=== PATIENT | female | born 1940 | race Caucasian/White ===

== ENCOUNTER → 2017-02-18 | Outpatient (CLI) | payer MEDICARE, BC ==
[~2017-02-18] MED LIST: ASPI81TA3 PO; pain medication
--- NOTE | 2017-02-18 10:08 | RADRPT ---
PROCEDURE: XR Hip, Bilateral. CLINICAL INDICATION: Pain. TECHNIQUE: Right and left hip x-rays, 5 views including single frontal view the pelvis. COMPARISON: Right hip x-rays 05/07/2015. Pelvic x-ray 05/07/2015. FINDINGS: Right hip: Bone density appears decreased. Right hip arthroplasty hardware is in place and unchang ed in configuration. There is no lucency surrounding the hardware to suggest hardware failure/loose [place]. The hip joint is intact. Left hip: Bone density appears decreased. Severe joint space narrowing is present and has progress ed since prior examination. Large subchondral cysts and osteophytosis are present. Degenerative ch anges of the lower lumbar spine are observed. IMPRESSION: Right hip arthroplasty without evidence of hardware complication. Severe osteoarthritis of the left hip, progressed from prior examination. RPTAT: HLST .Maribel Brewster MD, MD Date Time Electronically viewed and signed by .Maribel Brewster MD, on 02/18/2017 10:07 .T/
== END | disposition home or self-care (01) ==
LOC: HKI 09:07
PROVIDERS: ATTEND Orthopaedic Surgery
DX: M25.552 Pain in left hip (principal); M16.12 Unilateral primary osteoarthritis, left hip; Z96.641 Presence of right artificial hip joint
CPT/HCPCS: 73523; G0463

== ENCOUNTER → 2017-04-22 | Outpatient (CLI) | payer MEDICARE, BC ==
[~2017-04-22] MED LIST changes: +ASPI325T32 PO; +HYDR-3498 PO; +PANT40TA4 PO; +TRAM50TA2 PO
== END | disposition home or self-care (01) ==
LOC: HKI 09:42
PROVIDERS: ATTEND Orthopaedic Surgery
DX: Z01.818 Encounter for other preprocedural examination (principal); M16.12 Unilateral primary osteoarthritis, left hip; Z96.641 Presence of right artificial hip joint
CPT/HCPCS: 87081; G0463

== ENCOUNTER 2017-05-03 05:41 | Inpatient (IN) | payer MEDICARE, BC ==
[~2017-05-03] VITALS: Ht 154.9 cm; Wt 56.2 kg
[2017-05-03] VITALS (30 sets, daily range): BP systolic 101–144; BP diastolic 54–71; PULSE 68–84; RESP 13–32; Ht 154.9 cm; Wt 56.2 kg
[~2017-05-03 05:41] MED LIST changes: -ASPI325T32 PO; -HYDR-3498 PO; -PANT40TA4 PO; -TRAM50TA2 PO
[2017-05-03] MEDS ORDERED: BACITRACIN 50000 UNITS INJ ONE (06:33)
[2017-05-03] MEDS ORDERED: SODIUM CL BACTERIOSTATIC 30 ML INJ ONE (06:55)
[2017-05-03] MEDS ORDERED: VANCOMYCIN 1 GM INJ ONE (06:55)
[2017-05-03] MEDS ORDERED: POLYMYXIN B 500000 UNIT INJ ONE (06:55)
[2017-05-03] MEDS ORDERED: PREGABALIN 300 MG PO X1 PO SCH (07:00)
[2017-05-03] MEDS ORDERED: CEFAZOLIN 2GM/50 ML (PMX) 50 ML X1 BEFORE INCISION IVPB SCH (07:00)
[2017-05-03] MEDS ORDERED: oxyCODONE (CR) 10 MG TAB [oxyCONTIN] X1 DOSE PO SCH (07:00)
[2017-05-03] MEDS ORDERED: ONDANSETRON 4 MG IV X 1 DOSE IV SCH (07:00)
[2017-05-03] MEDS ORDERED: TRANEXAMIC ACID 580 MG in SOD CHLORIDE 0.9% 100 ML IVPB SCH (07:00)
[2017-05-03] MEDS ORDERED: traMADOL 50 MG TAB X 1 DOSE PO SCH (07:00)
[2017-05-03] MEDS ORDERED: SOD CHLORIDE 0.9% IV SCH (07:00)
[2017-05-03] MEDS ORDERED: PAIN COCKTAIL-CEFUROXIME IRR SCH ×7 (07:00)
[2017-05-03] MEDS ORDERED: BUPIVACAINE LIPOSOME/PF 266 MG/20 ML VIAL INFIL SCH (07:00)
[2017-05-03] MEDS ORDERED: EPHEDrine SULFATE 50 MG/5 ML SYG ONE (07:00)
[2017-05-03] MEDS ORDERED: CELECOXIB 400 MG PO X1 DOSE PO SCH (07:00)
[2017-05-03] MEDS ORDERED: TRANEXAMIC ACID IV SCH (07:00)
[2017-05-03] MEDS ORDERED: DESFLURANE 15 MIN ONE (07:00)
[2017-05-03] MEDS ORDERED: LACTATED RINGER'S 1,000 ML IV SCH (07:00)
[2017-05-03] MEDS ORDERED: GLYCOPYRROLATE 0.4 MG INJ ONE (07:13)
[2017-05-03] MEDS ORDERED: ROCURONIUM 50 MG INJ ONE (07:13)
[2017-05-03] MEDS ORDERED: FENTAnyl 50 MCG/ML VIAL ONE (07:13)
[2017-05-03] MEDS ORDERED: CEFAZOLIN 1 GM INJ ONE (07:13)
[2017-05-03] MEDS ORDERED: DEXAMETHASONE 4 MG/ML 1 ML INJ ONE (07:13)
[2017-05-03] MEDS ORDERED: MIDAZOLAM 1 MG/ML 2 ML INJ ONE (07:13)
[2017-05-03] MEDS ORDERED: PROPOFOL 20 ML ONE (07:13)
[2017-05-03] MEDS ORDERED: NEOSTIGMINE 3 MG/3 ML SYRINGE ONE (07:13)
[2017-05-03] MEDS ORDERED: ONDANSETRON 4 MG INJ ONE (07:13)
--- NOTE | 2017-05-03 07:20 | HPN ---
Date/Time of Note Date/Time of Note DATE: 05/03/17 TIME: 07:20 Interval H&P Admission Note Pt. seen H&P reviewed: No system changes No changes from H&P on 04/21/17 by LIZETTE Hernández MD May 03, 2017 07:20
[2017-05-03] MEDS ORDERED: HEPARIN 1000 UNITS/ML 10 ML INJ ONE (07:21)
[2017-05-03] MEDS ORDERED: MINERAL OIL LIGHT 10 ML VIAL ONE (07:50)
[2017-05-03] MEDS ORDERED: MEPERIDINE 25 MG INJ IV PRN (08:30)
[2017-05-03] MEDS ORDERED: MIDAZOLAM 1 MG/ML 2 ML INJ IV PRN (08:30)
[2017-05-03] MEDS ORDERED: OXYCODONE/ACETAMINOPHEN (5/325) TAB PO PRN ×2 (08:30)
[2017-05-03] MEDS ORDERED: ALBUTEROL 0.083% (NEB) 2.5 MG/3 ML AMP HHN PRN (08:30)
[2017-05-03] MEDS ORDERED: DIPHENHYDRAMINE 50 MG INJ IV PRN (08:30)
[2017-05-03] MEDS ORDERED: HYDROmorphONE (0.2 MG/ML) 10ML SYG IV PRN ×3 (08:30)
[2017-05-03] MEDS ORDERED: LABETALOL HCL 20MG INJ IV PRN (08:30)
[2017-05-03] MEDS ORDERED: TRIMETHOBENZAMIDE 100 MG/ML VIAL IM PRN (08:30)
[2017-05-03] MEDS ORDERED: FENTAnyl 50 MCG/ML VIAL IV PRN ×3 (08:30)
[2017-05-03] MEDS ORDERED: EPHEDrine SULFATE 50 MG/5 ML SYG IV PRN (08:30)
[2017-05-03] MEDS ORDERED: hydrALAzine 20 MG INJ IV PRN (08:30)
[2017-05-03] MEDS ORDERED: IPRATROPIUM (NEB) 0.5 MG/2.5 ML AMP HHN PRN (08:30)
[2017-05-03] MEDS ORDERED: ONDANSETRON 4 MG INJ IV PRN ×2 (08:30→10:00)
[2017-05-03] MEDS ORDERED: ETOMIDATE 20 MG INJ ONE (09:01)
[2017-05-03] MEDS ORDERED: PROPOFOL 100 ML ONE (09:01)
[2017-05-03] MEDS ORDERED: SUGAMMADEX SODIUM 200 MG/2 ML VIAL IV ONE (09:10)
--- NOTE | 2017-05-03 09:52 | OPR ---
Date/Time of Note Date/Time of Note DATE: 05/03/17 TIME: 09:48 Operative Report Complications DATE: 05/03/2017 PREOPERATIVE DIAGNOSIS: Left hip osteoarthritis POSTOPERATIVE DIAGNOSIS: Left hip osteoarthritis OPERATION PERFORMED: Left anterior total hip arthroplasty SURGEON: Lizette Pena MD PLASTIC TUBING INSULATION SUPERVISOR: Godfrey Salazar PA-C COMPONENTS USED: DePuy 52 mm Gription Happy cup, 52/36 neutral Altrx polyethylene liner, 4 standard Actis stem, 36+8.5 ceramic head ANESTHESIA: Spinal plus general endotracheal intubation. ANESTHESIOLOGIST: Lopez Barnard M.D. ESTIMATED BLOOD LOSS: 300 cc INTRAVENOUS FLUIDS: Crystalloid 2 L. SPECIMENS: Femoral head. DRAINS: Hemovac 1 COMPLICATIONS: None. DISPOSITION: The patient tolerated the procedure well and was taken to the recovery room in stable condition. INDICATIONS: The patient is a 76-year-old woman who has had progressively worsening pain in the left hip with radiographic evidence of severe osteoarthritis. She has failed nonsurgical means of treatment to address her pain including activity modifications pain medications and ambulatory assist devices. I felt the patient would benefit from a total hip arthroplasty through an anterior approach. The risks, benefits, and alternatives of the procedure were explained in detail to the patient. I explained the risks of the surgery to include, but not be limited to: bleeding and possible need for blood transfusion; infection; pain; stiffness; neurovascular injury with possible numbness, weakness, and/or paralysis anywhere from the hip down to the toes; fracture; instability; dislocation; leg length inequality; wear and/or loosening of the prosthesis and possible need for future revision; blood clots; pulmonary embolism; and anesthetic complications such as heart attack, stroke, GI bleed, pneumonia, and/ or . Ample time was allowed for the patient to ask questions, all of which were addressed and answered. The patient understood the risks involved and wished to proceed. Informed consent was signed prior to the procedure. PROCEDURE: The patient's left hip was initialed with a marking pen in the preoperative area to identify the correct operative site. The patient was brought to the operating room and transferred from the [facility] to the [facility] where a spinal anesthetic was administered. The patient was then anesthetized and intubated. A Mac catheter was placed. Both feet were placed into well padded boots which were then placed into the leg holders of the traction booms. A timeout was performed to confirm that the left side was the correct operative site. The patient was given 2 g of intravenous Ancef within one hour prior to the procedure. The operative hip was prepped and draped in the usual sterile fashion. A 10 cm oblique incision was made over the anterior aspect of the hip and carried down through subcutaneous tissue and fat with sharp dissection. The tensor fascia irena was incised along the length of the wound. The tensor fascia muscle was retracted laterally and the sartorius medially. The anterior circumflex vessels were identified and tied off with 2-0 silk suture and coagulated with the Tissue Link vice president process. The rectus femoris was elevated off the anterior capsule and an anterior capsulectomy performed. A femoral neck osteotomy was made and the head removed from the acetabulum. The acetabulum was denuded of cartilage circumferentially, as was the femoral head. Retractors were placed around the acetabulum. The remnants of the labrum and ligamentum teres were excised. I reamed the acetabulum to the medial wall and then went into an anatomic position and increased the reamer size in 2 mm increments until I got a good bite and was down to bleeding subchondral bone. The Happy cup was opened and impacted into the acetabulum and sat flush circumferentially, getting a good bite. C-arm imaging showed it had about 40 to 45 degrees of abduction and 20 degrees of anteversion. The real liner was opened and impacted into the acetabulum and sat flush circumferentially. Attention was turned towards the femur. The operative leg was carefully lowered to the floor with the leg adducted. The foot was then externally rotated to approximately 110 degrees. A posteromedial release was performed to optimize exposure. The femoral hook was placed underneath the proximal femur and the hydraulic lift was then used to elevate the femur up out of the wound. The cookie cutter osteotome was used to remove the remaining overhanging greater trochanter. The femur was then broached, going up in one size increments until it sat flush with the neck cut and a stable fit was achieved. The trial neck and head were assembled and reduced into the acetabulum. Fluoroscopic imaging showed the components to be in good position and the leg lengths and offsets to be equal. At this point, the trial was dislocated and the trial broach removed. The canal was irrigated and dried. The real stem was opened and impacted into the femur. The trunnion was irrigated and dried, and the real femoral head was impacted onto the trunnion, and reduced into the acetabulum. The soft tissues were infiltrated with a mixture of 150 mg of 0.5% Bupivacaine, 8 mg of Duramorph, 300 mcg of epinephrine, 30 mg of Toradol, 100 mcg of clonidine, 750 mg of cefuroxime and 86 mL of normal saline, followed by an injection of 266 mg of liposomal Bupivacaine. At this point the hip was irrigated with a mixture of betadine/saline and then antibiotic saline with pulsatile lavage. A Hemovac drain was placed in the deep portion of the wound and brought out the anterolateral thigh. There was good hemostasis. The tensor fascia irena was repaired with a running #1 Vicryl. The deep fat layer was irrigated and closed with 2-0 Stratafix and the subcutaneous layer closed with 3 -0 Vicryl and the skin was closed with issa and then sealed with Dermabond. The drain was secured with 3-0 nylon. The sponge and needle counts were correct at the end of the case. The wound was covered with an occlusive dressing. The patient was awakened, extubated, and taken to the recovery room in stable condition. LIZETTE PENA MD May 03, 2017 09:52
--- NOTE | 2017-05-03 09:57 | PN ---
Date/Time of Note Date/Time of Note DATE: 05/03/17 TIME: 09:55 Assessment/Plan Lines/Catheters IV Catheter Type (from Nrsg): Peripheral IV Assessment/Plan Assessment/Plan Stable in PACU, s/p left anterior RHIANNON -continue Ancef -pain meds as needed -ASA/SCDs for DVT prophylaxis -OOB with PT -monitor drain -check AM labs -d/c morrell in AM XR of the left hip is pending at this time Subjective 24 Hr Interval Summary Stable in PACU. Denies pain. Moving all extremities. Exam/Review of Systems Vital Signs Vitals Vital Signs Date Time Temp Pulse Resp B/P Pulse Ox O2 Delivery O2 Flow Rate FiO2 05/03/17 09:47 97.7 05/03/17 06:54 68 16 109/61 98 Room Air Exam Free Text/Dictation Hemovac: minimal Dressing dry Incision clean, dry, and intact without redness or drainage 5/5 Quadriceps, Tibialis Anterior, EHL, Gastroc, Soleus, Peroneals Normal sensation Palpable DT/PT, CR <2 sec No distal edema AME MARTIN PA-C May 03, 2017 09:57
[2017-05-03] MEDS ORDERED: HYDROCODONE/APAP (5/325) TAB PO PRN (10:00)
[2017-05-03] MEDS ORDERED: MAGNESIUM HYDROXIDE 30ML CUP PO PRN (10:00)
[2017-05-03] MEDS ORDERED: NACL 0.9% 3 ML SYG IV SCH (10:00)
[2017-05-03] MEDS ORDERED: BISACODYL 10 MG SUPP PR PRN (10:00)
[2017-05-03] MEDS ORDERED: DIPHENHYDRAMINE 25 MG CAP PO PRN (10:00)
[2017-05-03] MEDS ORDERED: ASPIRIN (EC) 325 MG TAB PO ONE (10:00)
[2017-05-03] MEDS ORDERED: HYDROmorphONE 1 MG/ML SYG IV PRN (10:00)
[2017-05-03] MEDS ORDERED: NA PHOSPHATE/BIPHOS 133 ML ENEMA PR PRN (10:00)
[2017-05-03 10:43] LABS: HEMATOCRIT 36.4 % (37.0-47.0)
--- NOTE | 2017-05-03 11:01 | RADRPT ---
PROCEDURE: Pelvis x-ray CLINICAL INDICATION: Post op in PACU TECHNIQUE: Single AP view of the pelvis performed. COMPARISON: None FINDINGS: There are bilateral hip arthroplasties. The femoral and acetabular components are anatomically alig pillo. There is subcutaneous emphysema with a drainage tube associated with the left hip prosthesis w ith skin issa over the lateral surface of the left hip. IMPRESSION: 1. See postsurgical changes with subcutaneous emphysema and a drainage tube noted following placeme nt of a total left hip arthroplasty since the prior study of 02/18/2017. 2. Stable appearance of the total right hip arthroplasty. RPTAT:AAJJ Physician Maddie Date Time Electronically viewed and signed by Physician Maddie on 05/03/2017 11:00 SAMIR/
[2017-05-03 11:11] LABS: CALCIUM 8.9 mg/dl (8.4-10.2); CREATININE 0.48 mg/dl (0.44-1.00); POTASSIUM 3.7 mmol/L (3.5-5.1)
[2017-05-03] MEDS: traMADol 50 MG TAB PO SCH ×3 (12:00→23:10)
--- NOTE | 2017-05-03 12:03 | CONS ---
DATE OF ADMISSION: 05/03/2017 DATE OF CONSULTATION: 05/03/2017 Thank you, Dr. Young, for asking me to participate in the medical management of this patient. REASON FOR CONSULTATION: To manage the patient's hyperlipidemia. HISTORY OF PRESENT ILLNESS: This 76-year-old female is now in the recovery room after undergoing a left total hip replacement by Dr. Young. The patient is awake and alert. She denies any chest pain, cough, hip pain. She is overall feeling well. The patient was having left hip pain preoperatively, which was increasing in severity. She failed medical therapy and decided to undergo a left total hip replacement. The patient is taking aspirin 81 mg a day, which was discontinued a week preoperatively. PAST MEDICAL HISTORY: Low blood sugars since her early 30s. She did have some chest pain and is followed by Dr. Sanderson for cardiology. The patient has hyperlipidemia and vitamin D deficiency. PAST SURGICAL HISTORY: Oophorectomy, early menopause since age 30s. Left cataract extraction. Status post right total hip replacement in April [address] Young. FAMILY HISTORY: Father of throat cancer at age 65. Mother of tuberculosis at age 21. SOCIAL HISTORY: She does not smoke. Does not use illicit drugs. She exercises by walking at work. She drinks 2 cups of coffee a day. Drinks alcohol rarely. MEDICATION: Colace, Tylenol, [place]-3 fatty acids, oyster calcium. PHYSICAL EXAMINATION: GENERAL APPEARANCE: At this time, reveals a well-developed female, in no apparent distress. She is awake and alert. She denies any chest pain or shortness of breath. VITAL SIGNS: Pulse of 83, blood pressure 121/61, O2 sat 99 percent on 2 L nasal cannula. HEENT: Head normocephalic. Eyes: Extraocular muscles intact. Nose and mouth are normal. NECK: Supple. No neck vein distention. LUNGS: Clear to auscultation. HEART: Regular rhythm. No murmurs, gallops, or rubs. ABDOMEN: Soft, nontender. No masses or megaly. EXTREMITIES: No peripheral edema. IMPRESSION: This patient is now postoperative a left total hip replacement. She did have her right hip replaced several years ago by Dr. Young and has done well. The patient does have a history of hyperlipidemia, vitamin D deficiency. She is stable at this time without any complaints. PLAN: 1. Start physical therapy as tolerated. 2. Check labs in the morning. 3. I will follow the patient along with you. Dictated By: Tex Hodge MD /sharon/jose /Document#: [id number]
--- NOTE | 2017-05-03 12:45 | RADRPT ---
PROCEDURE: Fluoroscopic guidance with x-ray images during left hip replacement. CLINICAL INDICATION: Left hip replacement. TECHNIQUE: 12 x-ray images were obtained during left hip replacement. COMPARISON: None available FINDINGS: 0.5 minutes of fluoroscopy time was utilized during pacemaker insertion. 12 x-ray images were obtai pillo during the procedure in progress for guidance. Cumulative dose total is 4.05 mGy and 0.120 mGym2 . The left hip replacement prosthesis is in good position and alignment. No fractures seen. Proced ure was performed by Dr. Young. IMPRESSION: 1. Fluoroscopic guidance with x-ray images obtained for left hip replacement. RPTAT: XX .Bayron Levy MD, Date Time Electronically viewed and signed by .Bayron Levy MD, on 05/03/2017 12:44 .T/
[2017-05-03] MEDS ORDERED: SOD CHLORIDE 0.9% IVPB ONE ×2 (13:00→16:00)
[2017-05-03] MEDS ORDERED: TRANEXAMIC ACID IVPB ONE ×2 (13:00→16:00)
[2017-05-03] MEDS: LACTATED RINGER'S 1,000 ML IV SCH ×3 (13:51→23:10)
[2017-05-03] MEDS: CEFAZOLIN 2 GM/50 ML (PMX) 50 ML IVPB SCH ×2 (15:54→23:10)
[2017-05-03] MEDS ORDERED: EXPAREL NOTE (BUPIVICAINE LIPOSOMAL) XX SCH (17:00)
[2017-05-03] MEDS: PANTOPRAZOLE (EC) 40 MG TAB PO SCH (18:08)
[2017-05-03] MEDS: DOCUSATE SODIUM 100 MG CAP PO SCH (20:04)
[2017-05-04 00:19] VITALS: BP 94/52; RESP 18
[2017-05-04] MEDS: LACTATED RINGER'S 1,000 ML IV SCH ×3 (01:49→17:09)
[2017-05-04] MEDS: HYDROCODONE/APAP (5/325) TAB PO PRN ×2 (02:04→16:19)
[2017-05-04] MEDS: CEFAZOLIN 2 GM/50 ML (PMX) 50 ML IVPB SCH (05:13)
[2017-05-04] MEDS: PANTOPRAZOLE (EC) 40 MG TAB PO SCH ×2 (05:13→17:30)
[2017-05-04] MEDS: traMADol 50 MG TAB PO SCH ×3 (05:13→17:30)
[2017-05-04 05:15] LABS: HEMATOCRIT 30.9 % (37.0-47.0); HEMOGLOBIN 9.9 g/dl (12.0-16.0)
[2017-05-04 05:42] LABS: CALCIUM 8.7 mg/dl (8.4-10.2); CREATININE 0.58 mg/dl (0.44-1.00)
[2017-05-04 06:44] LABS: ADD UMIC YES; UR ASCORBIC ACID NEGATIVE (NEGATIVE); UR BILIRUBIN (Dip) NEGATIVE (NEGATIVE); UR BLOOD (Dip) 1+ mg/dL (NEGATIVE); UR CLARITY CLEAR (CLEAR); UR COLOR YELLOW (YELLOW); UR GLUCOSE (Dip) 2+ mg/dL (NEGATIVE); UR KETONES (Dip) NEGATIVE (NEGATIVE); UR LEUKOCYTE ESTERASE (Dip) NEGATIVE Leu/ul (NEGATIVE); UR NITRITE (Dip) NEGATIVE (NEGATIVE); UR RBC 5 /HPF (0-5); UR SPECIFIC GRAVITY (Dip) 1.012 (1.003-1.030); UR TOTAL PROTEIN (Dip) NEGATIVE (NEGATIVE); UR UROBILINOGEN (Dip) NEGATIVE (NEGATIVE)
--- NOTE | 2017-05-04 07:24 | PDOCDIS ---
Discharge Instructions DIAGNOSIS Discharge Diagnosis s/p left anterior RHIANNON CONDITION Patient Condition: Good HOME CARE INSTRUCTIONS: Diet Instructions: RegularSpecial Diet: REGULAR ACTIVITY: Activity Restrictions: Slowly Increase Activity Rest between Activity Avoid heavy lifting Do not operate Machinery Do not operate Power Tool Avoid Heavy Housework Keep Limb Elevated Weight Bearing Bathing Restrictions: Shower FOLLOW UP/APPOINTMENTS Follow-up Plan follow up in the office on 05/13/17 OTHER ORDERS: Other Orders: S/P Anterior RHIANNON Physical Therapy: Three times per week at home x 2 weeks Daily in Rehab/SNF WB STATUS: WBAT Strengthening exercises for both upper and un-operated lower extremities. 1. Gait training with front wheeled walker 2. Wide base gait, no pivot turns. 3. Abductor strengthening. 4. Quadriceps and hamstring strengthening. 5. May switch to cane in contra lateral hand 6 weeks after surgery. 6. Physical Therapy can open case if nursing is not available. 7. Ice Packs while at rest to surgical wound for 20 minutes, 3 times/day. 8. Patient requires mobile SCDs to reduce risk of developing DVT following RHIANNON. Patient will use the mobile SCDs for 30 days postoperatively. Hip Precautions: No posterior hip precautions. Bathing assistance by home health aide twice weekly if Medicare patient. Occupational Therapy: Evaluation for assistive devices and ADL training. Wound Care: Keep incision dry & covered with Tegaderm until first visit with Dr. Young Anticoagulation Orders: Enteric Coated Aspirin 325 mg po bid x 6 weeks from date of surgery Follow-up:Call for an appointment with Dr. Young in 1 week after discharged from hospital at DME Orders: DEEPTI, 3-in-1 Commode, Mobile SCDs AME MARTIN PA-C May 04, 2017 07:24
[2017-05-04] MEDS ORDERED: TRAM50TA2 PO (07:25)
[2017-05-04] MEDS ORDERED: ASPI325T32 PO (07:25)
[2017-05-04] MEDS ORDERED: PANT40TA4 PO (07:25)
[2017-05-04] MEDS ORDERED: HYDR-3498 PO (07:25)
[2017-05-04 07:39] VITALS: BP 84/49; RESP 16
[2017-05-04] MEDS ORDERED: SOD CHLORIDE 0.9% 250 ML IV ONE (08:30)
--- NOTE | 2017-05-04 08:41 | PN ---
Date/Time of Note Date/Time of Note DATE: 05/04/17 TIME: 08:39 Assessment/Plan Lines/Catheters IV Catheter Type (from Nrsg): Peripheral IV Mac in Place (from Nrsg): Yes Assessment/Plan Assessment/Plan Stable POD #1, s/p left anterior RHIANNON -d/c Ancef -pain meds as needed -ASA/SCDs -drain removed -OOB with PT -check AM labs -d/c planning. Will plan to go home upon discharge Subjective 24 Hr Interval Summary No acute overnight events. Denies pain. Began PT yesterday. VSS, afebrile. Will plan to go home upon discharge. Exam/Review of Systems Vital Signs Vitals Vital Signs Date Time Temp Pulse Resp B/P Pulse Ox O2 Delivery O2 Flow Rate FiO2 05/04/17 07:39 98.0 59 16 84/49 97 05/03/17 18:00 Nasal Cannula 2.0 Intake and Output 05/03/17 05/03/17 05/04/17 14:59 22:59 06:59 Intake Total 3755.6 ml 1015.6 ml 1300 ml Output Total 1680 ml 1060 ml 1800 ml Balance 2075.6 ml -44.4 ml -500 ml Exam Free Text/Dictation Hemovac: 190cc Dressing dry Incision clean, dry, and intact without redness or drainage 5/5 Quadriceps, Tibialis Anterior, EHL, Gastroc, Soleus, Peroneals Normal sensation Palpable DT/PT, CR <2 sec No distal edema Results Result Diagram: 05/04/1744105/04/17 044 AME MARTIN PA-C May 04, 2017 08:41
--- NOTE | 2017-05-04 08:48 | CONS ---
Date/Time of Note Date/Time of Note DATE: 05/04/17 TIME: 08:44 Assessment/Plan Assessment/Plan Chief Complaint/Hosp Course 1. she is 1 day post op a L THR . 2. BP is low . She is slightly lightheaded . Will bolus with NS 250 cc . 3. continue current medication and PT . Problems: Consultation Date/Type/Reason Admit Date/Time May 03, 2017 at 05:41 Initial Consult Date 24 HR Interval Summary Free Text/Dictation She is 1 day post op a L THR . She is feeling well except slightly lightheaded . She is sitting up eating . Constitutional: no complaints Exam/Review of Systems Vital Signs Vitals Vital Signs Date Time Temp Pulse Resp B/P Pulse Ox O2 Delivery O2 Flow Rate FiO2 05/04/17 07:39 98.0 59 16 84/49 97 05/03/17 18:00 Nasal Cannula 2.0 Intake and Output 05/03/17 05/03/17 05/04/17 15:00 23:00 07:00 Intake Total 3755.6 ml 1015.6 ml 1300 ml Output Total 1680 ml 1060 ml 1800 ml Balance 2075.6 ml -44.4 ml -500 ml Exam Constitutional: alert, oriented, well developed Respiratory: clear to auscultation, normal air movement Cardiovascular: regular rate and rhythm Gastrointestinal: non-tender, soft Musculoskeletal: nl extremities to inspection Results Result Diagram: 05/04/17 0442 05/04/17 0442 Results 24 hrs Laboratory Tests Test 05/03/17 10:16 05/04/17 04:07 05/04/17 04:42 Hemoglobin 12.0 9.9 L Hematocrit 36.4 L 30.9 L Sodium Level 145 H 140 Potassium Level 3.7 4.0 Chloride Level 104 99 Carbon Dioxide Level 27 29 Anion Gap 18 H 16 Blood Urea Nitrogen 15 15 Creatinine 0.48 0.58 Glucose Level 166 102 # Calcium Level 8.9 8.7 Urine Color YELLOW Urine Clarity CLEAR Urine pH 7.0 Urine Specific Ada 1.012 Urine Ketones NEGATIVE Urine Nitrite NEGATIVE Urine Bilirubin NEGATIVE Urine Urobilinogen NEGATIVE Urine Leukocyte Esterase NEGATIVE Urine Microscopic RBC 5 Urine Microscopic WBC 1 Urine Hemoglobin 1+ H Urine Glucose 2+ H Urine Total Protein NEGATIVE Medications Medications Current Medications Miscellaneous Information 1 ea 1 ea NOTE XX ; Start 05/03/17 at 17:00; Stop 05/06 at 16:59 Lactated Ringer's (Lr) 1,000 ml @ 125 mls/hr Q8H IV Last administered on 23:10; Admin Dose 125 MLS/HR; Start 05/03/17 at 09:49 Tramadol HCl (Ultram) 50 mg Q6 PO Last administered on 05/04/17 05:13; Admin Dose 50 MG; Start 05/03/17 at 12:00; Stop 05/06/17 at 11:59 Acetaminophen/ Hydrocodone Bitart ([place] (5/325)) 1 tab Q4H PRN PO PAIN LEVEL 1 -3 Last administered on 05/04/17 02:04; Admin Dose 1 TAB; Start 05/03/17 at 10:00 Acetaminophen/ Hydrocodone Bitart ([place] (5/325)) 2 tab Q4H PRN PO PAIN LEVEL 4 -7; Start 05/03/17 at 10:00 Hydromorphone HCl (Dilaudid) 1 mg Q3H PRN IV PAIN LEVEL 8-10; Start 05/03/17 at 10:00 Ondansetron HCl (Zofran Inj) 4 mg Q6H PRN IV NAUSEA AND/OR VOMITING; Start 05/03 at 10:00 Bisacodyl (Dulcolax Supp) 10 mg Q12H PRN [place] CONSTIPATION; Start 05/03/17 at 10: 00 Magnesium Hydroxide (Milk Of Mag) 30 ml BID PRN PO CONSTIPATION; Start 05/03/17 at 10:00 Sodium Biphosphate/ Sodium Phosphate (Fleet Enema) 133 ml DAILY PRN [place] CONSTIPATION; Start 05/03/17 at 10:00 Docusate Sodium (Colace) 100 mg BID PO Last administered on 05/03/17 20:04; Admin Dose 100 MG; Start 05/03/17 at 21:00 Diphenhydramine HCl (Benadryl) 25 mg Q6H PRN PO PRURITUS; Start 05/03/17 at 10: 00 Aspirin (Ecotrin) 325 mg BID PO ; Start 05/04/17 at 09:00 Pantoprazole 40 mg 40 mg BID@06,18 PO Last administered on 05/04/17 05:13; Admin Dose 40 MG; Start 05/03/17 at 18:00 Sodium Chloride (NS) 250 ml @ 250 mls/hr Q1H ONCE IV ; Start 05/04/17 at 08:30; Stop 05/04/17 at 09:29 BORA FRANKLIN MD May 04, 2017 08:48
[2017-05-04] MEDS: DOCUSATE SODIUM 100 MG CAP PO SCH ×2 (09:03→20:13)
[2017-05-04] MEDS: ASPIRIN (EC) 325 MG TAB PO SCH ×2 (09:05→20:13)
[2017-05-04 15:27] VITALS: BP 103/56; RESP 18
[2017-05-04 21:00] VITALS: BP 106/57; RESP 20
[2017-05-05] MEDS: traMADol 50 MG TAB PO SCH ×4 (00:30→18:00)
[2017-05-05] MEDS: LACTATED RINGER'S 1,000 ML IV SCH ×3 (02:23→15:56)
[2017-05-05 05:12] LABS: HEMATOCRIT 30.6 % (37.0-47.0); HEMOGLOBIN 9.8 g/dl (12.0-16.0)
[2017-05-05] MEDS: PANTOPRAZOLE (EC) 40 MG TAB PO SCH ×2 (05:24→18:08)
[2017-05-05 05:52] LABS: CALCIUM 8.7 mg/dl (8.4-10.2); CREATININE 0.58 mg/dl (0.44-1.00)
[2017-05-05 08:46] VITALS: BP 134/60; RESP 16
[2017-05-05] MEDS: DOCUSATE SODIUM 100 MG CAP PO SCH ×2 (09:03→20:22)
[2017-05-05] MEDS: ASPIRIN (EC) 325 MG TAB PO SCH ×2 (09:03→21:00)
--- NOTE | 2017-05-05 09:40 | CONS ---
Date/Time of Note Date/Time of Note DATE: 05/05/17 TIME: 09:35 Assessment/Plan Assessment/Plan Chief Complaint/Hosp Course 1. she is 2 days postop a left hip replacement. She is feeling much better. Her dizziness has resolved. 2. BP and laboratory tests are acceptable. 3. continue current medication and PT . Problems: Consultation Date/Type/Reason Admit Date/Time May 03, 2017 at 05:41 Type of Consultation: medicine 24 HR Interval Summary Constitutional: improved, no complaints Exam/Review of Systems Vital Signs Vitals Vital Signs Date Time Temp Pulse Resp B/P Pulse Ox O2 Delivery O2 Flow Rate FiO2 05/05/17 08:46 98.8 75 16 134/60 95 05/03/17 18:00 Nasal Cannula 2.0 Intake and Output 05/04/17 05/04/17 05/05/17 15:00 23:00 07:00 Intake Total 250 ml 2040 ml 1900 ml Output Total 1450 ml Balance 250 ml 590 ml 1900 ml Exam Constitutional: alert, oriented, well developed ENMT: nl external ears & nose, nl lips & teeth, nl nasal mucosa & septum Respiratory: clear to auscultation, normal air movement Cardiovascular: regular rate and rhythm Gastrointestinal: non-tender, soft Musculoskeletal: nl extremities to inspection Results Result Diagram: 05/05/17 0436 05/05/17 0436 Results 24 hrs Laboratory Tests Test 05/05/17 04:36 Hemoglobin 9.8 L Hematocrit 30.6 L Sodium Level 140 Potassium Level 4.0 Chloride Level 97 Carbon Dioxide Level 33 H Anion Gap 14 Blood Urea Nitrogen 14 Creatinine 0.58 Glucose Level 109 Calcium Level 8.7 Medications Medications Current Medications Miscellaneous Information 1 ea 1 ea NOTE XX ; Start 05/03/17 at 17:00; Stop 05/06 at 16:59 Lactated Ringer's (Lr) 1,000 ml @ 125 mls/hr Q8H IV Last administered on 02:23; Admin Dose 125 MLS/HR; Start 05/03/17 at 09:49 Tramadol HCl (Ultram) 50 mg Q6 PO Last administered on 05/05/17 05:25; Admin Dose 50 MG; Start 05/03/17 at 12:00; Stop 05/06/17 at 11:59 Acetaminophen/ Hydrocodone Bitart ([place] (5/325)) 1 tab Q4H PRN PO PAIN LEVEL 1 -3 Last administered on 05/04/17 16:19; Admin Dose 1 TAB; Start 05/03/17 at 10:00 Acetaminophen/ Hydrocodone Bitart ([place] (5/325)) 2 tab Q4H PRN PO PAIN LEVEL 4 -7; Start 05/03/17 at 10:00 Hydromorphone HCl (Dilaudid) 1 mg Q3H PRN IV PAIN LEVEL 8-10; Start 05/03/17 at 10:00 Ondansetron HCl (Zofran Inj) 4 mg Q6H PRN IV NAUSEA AND/OR VOMITING; Start 05/03 at 10:00 Bisacodyl (Dulcolax Supp) 10 mg Q12H PRN [place] CONSTIPATION; Start 05/03/17 at 10: 00 Magnesium Hydroxide (Milk Of Mag) 30 ml BID PRN PO CONSTIPATION; Start 05/03/17 at 10:00 Sodium Biphosphate/ Sodium Phosphate (Fleet Enema) 133 ml DAILY PRN [place] CONSTIPATION; Start 05/03/17 at 10:00 Docusate Sodium (Colace) 100 mg BID PO Last administered on 05/05/17 09:03; Admin Dose 100 MG; Start 05/03/17 at 21:00 Diphenhydramine HCl (Benadryl) 25 mg Q6H PRN PO PRURITUS; Start 05/03/17 at 10: 00 Aspirin (Ecotrin) 325 mg BID PO Last administered on 05/05/17 09:03; Admin Dose 325 MG; Start 05/04/17 at 09:00 Pantoprazole (Protonix Tab) 40 mg BID@,18 PO Last administered on 05/05/17 05:24; Admin Dose 40 MG; Start 05/03/17 at 18:00 BORA FRANKLIN MD May 05, 2017 09:40
--- NOTE | 2017-05-05 10:42 | PN ---
Date/Time of Note Date/Time of Note DATE: 05/05/17 TIME: 10:40 Assessment/Plan Lines/Catheters IV Catheter Type (from Nrsg): Peripheral IV Mac in Place (from Nrsg): Yes Assessment/Plan Assessment/Plan Stable POD #2, s/p left anterior RHIANNON -pain meds prn -ASA/SCDs -OOB with PT -dressing changed -check AM labs -plan to d/c home tomorrow Subjective 24 Hr Interval Summary No acute overnight events. Denies pain today. Progressing well with PT. VSS, afebrile. Would like to go home tomorrow. Exam/Review of Systems Vital Signs Vitals Vital Signs Date Time Temp Pulse Resp B/P Pulse Ox O2 Delivery O2 Flow Rate FiO2 05/05/17 08:46 98.8 75 16 134/60 95 05/03/17 18:00 Nasal Cannula 2.0 Intake and Output 05/04/17 05/04/17 05/05/17 15:00 23:00 07:00 Intake Total 250 ml 2040 ml 1900 ml Output Total 1450 ml Balance 250 ml 590 ml 1900 ml Exam Free Text/Dictation Dressing dry Incision clean, dry, and intact without redness or drainage 5/5 Quadriceps, Tibialis Anterior, EHL, Gastroc, Soleus, Peroneals Normal sensation Palpable DT/PT, CR <2 sec No distal edema Results Result Diagram: 05/05/17 0436 05/05/17 0436 AME MARTIN PA-C May 05, 2017 10:42
[2017-05-05 14:29] VITALS: BP 102/53; RESP 16
[2017-05-05 19:34] VITALS: BP 115/54; RESP 17
[2017-05-06] MEDS: LACTATED RINGER'S 1,000 ML IV SCH ×2 (01:49→09:49)
[2017-05-06] MEDS: traMADol 50 MG TAB PO SCH ×2 (06:00)
[2017-05-06 06:08] LABS: HEMATOCRIT 32.4 % (37.0-47.0); HEMOGLOBIN 10.9 g/dl (12.0-16.0)
[2017-05-06] MEDS: PANTOPRAZOLE (EC) 40 MG TAB PO SCH (06:26)
[2017-05-06 06:35] LABS: CREATININE 0.61 mg/dl (0.44-1.00); POTASSIUM 4.1 mmol/L (3.5-5.1)
[2017-05-06] MEDS: DOCUSATE SODIUM 100 MG CAP PO SCH (08:32)
[2017-05-06] MEDS: ASPIRIN (EC) 325 MG TAB PO SCH (08:32)
--- NOTE | 2017-05-06 08:32 | CONS ---
Date/Time of Note Date/Time of Note DATE: 05/06/17 TIME: 08:30 Assessment/Plan Assessment/Plan Additional Assessment/Plan 1. Stable post op left hip replacement 2. BP controlled 3. Labs rev 4. Can transfer if ok with ortho and PT Consultation Date/Type/Reason Admit Date/Time May 03, 2017 at 05:41 Initial Consult Date Type of Consultation: medicine Detailed Summary Respiratory: No cough, No shortness of breath Cardiovascular: No chest pain Gastrointestinal: no complaints Genitourinary: no complaints Musculoskeletal: bone/joint pain (mild left hip pain) Exam/Review of Systems Vital Signs Vitals Vital Signs Date Time Temp Pulse Resp B/P Pulse Ox O2 Delivery O2 Flow Rate FiO2 05/05/17 19:34 98.2 80 17 115/54 97 05/03/17 18:00 Nasal Cannula 2.0 Intake and Output 05/05/17 05/05/17 05/06/17 15:00 23:00 07:00 Intake Total 625 ml 1180 ml 800 ml Balance 625 ml 1180 ml 800 ml Exam Neck: No jvd Respiratory: clear to auscultation Cardiovascular: regular rate and rhythm Extremities: No edema (and no calk tend bilat) Results Result Diagram: 05/06/17 0444 05/06/17 0444 Results 24 hrs Laboratory Tests Test 05/06/17 04:44 05/06/17 07:44 Hemoglobin 10.9 L Hematocrit 32.4 L Sodium Level 140 Potassium Level 4.1 Chloride Level 98 Carbon Dioxide Level 32 H Anion Gap 14 Blood Urea Nitrogen 12 Creatinine 0.61 Glucose Level 115 Calcium Level 9.0 Lab Scanned Report REFERENCE LAB Medications Medications Current Medications Miscellaneous Information 1 ea 1 ea NOTE XX ; Start 05/03/17 at 17:00; Stop 05/06 at 16:59 Lactated Ringer's (Lr) 1,000 ml @ 125 mls/hr Q8H IV Last administered on 02:23; Admin Dose 125 MLS/HR; Start 05/03/17 at 09:49 Tramadol HCl (Ultram) 50 mg Q6 PO Last administered on 05/05/17 12:23; Admin Dose 50 MG; Start 05/03/17 at 12:00; Stop 05/06/17 at 11:59 Acetaminophen/ Hydrocodone Bitart (Beverly (5/325)) 1 tab Q4H PRN PO PAIN LEVEL 1 -3 Last administered on 05/04/17 16:19; Admin Dose 1 TAB; Start 05/03/17 at 10:00 Acetaminophen/ Hydrocodone Bitart (Beverly (5/325)) 2 tab Q4H PRN PO PAIN LEVEL 4 -7; Start 05/03/17 at 10:00 Hydromorphone HCl (Dilaudid) 1 mg Q3H PRN IV PAIN LEVEL 8-10; Start 05/03/17 at 10:00 Ondansetron HCl (Zofran Inj) 4 mg Q6H PRN IV NAUSEA AND/OR VOMITING; Start 05/03 at 10:00 Bisacodyl (Dulcolax Supp) 10 mg Q12H PRN ID CONSTIPATION; Start 05/03/17 at 10: 00 Magnesium Hydroxide (Milk Of Mag) 30 ml BID PRN PO CONSTIPATION Last administered on 05/05/17 18:08; Admin Dose 30 ML; Start 05/03/17 at 10:00 Sodium Biphosphate/ Sodium Phosphate (Fleet Enema) 133 ml DAILY PRN ID CONSTIPATION; Start 05/03/17 at 10:00 Docusate Sodium (Colace) 100 mg BID PO Last administered on 05/05/17 20:22; Admin Dose 100 MG; Start 05/03/17 at 21:00 Diphenhydramine HCl (Benadryl) 25 mg Q6H PRN PO PRURITUS; Start 05/03/17 at 10: 00 Aspirin (Ecotrin) 325 mg BID PO Last administered on 05/05/17 21:00; Admin Dose 325 MG; Start 05/04/17 at 09:00 Pantoprazole (Protonix Tab) 40 mg BID@,18 PO Last administered on 05/06/17 06:26; Admin Dose 40 MG; Start 05/03/17 at 18:00 LUCAS SANDOVAL MD May 06, 2017 08:31
[2017-05-06 08:35] VITALS: BP 110/60; RESP 18
--- NOTE | 2017-05-06 09:14 | PN ---
Date/Time of Note Date/Time of Note DATE: 05/06/17 TIME: 09:13 Assessment/Plan Lines/Catheters IV Catheter Type (from Nrsg): Saline Lock Mac in Place (from Nrsg): Yes Assessment/Plan Assessment/Plan Stable POD #3, s/p left anterior RHIANNON -pain meds as needed -ASA/SCDs -OOB with PT -dressing changed -d/c home today -follow up in the office in 1 week Subjective 24 Hr Interval Summary No acute overnight events. Denies pain. Progressing well with PT. Stable for d/ c home today. Exam/Review of Systems Vital Signs Vitals Vital Signs Date Time Temp Pulse Resp B/P Pulse Ox O2 Delivery O2 Flow Rate FiO2 05/06/17 08:35 98.6 87 18 110/60 95 05/03/17 18:00 Nasal Cannula 2.0 Intake and Output 05/05/17 05/05/17 05/06/17 15:00 23:00 07:00 Intake Total 625 ml 1180 ml 800 ml Balance 625 ml 1180 ml 800 ml Exam Free Text/Dictation Dressing dry Incision clean, dry, and intact without redness or drainage 5/5 Quadriceps, Tibialis Anterior, EHL, Gastroc, Soleus, Peroneals Normal sensation Palpable DT/PT, CR <2 sec No distal edema Results Result Diagram: 05/06/17 0444 05/06/17 0444 AME MARTIN PA-C May 06, 2017 09:14
--- NOTE | 2017-05-06 12:59 | DS ---
Date/Time of Note Date/Time of Note DATE: 05/06/17 TIME: 12:57 Discharge Summary Admission/Discharge Info Admit Date/Time May 03, 2017 at 05:41 Discharge Date/Time May 06, 2017 Discharge Diagnosis s/p left anterior RHIANNON Patient Condition: Good Procedures Left anterior total hip arthroplasty Hospital Course This is a 76-year-old female, who was seen in the clinic complaining of left hip pain. X-rays demonstrated advanced osteoarthritis of left hip, and is thought she would benefit from a left anterior total hip arthroplasty. On 2016, the patient was admitted and taken to the operating room, where she underwent a left anterior total hip arthroplasty. There were no intraoperative complications. The patient tolerated procedure well. She was taken to recovery room in stable condition. Pain was well-controlled oral pain medication. She was started on aspirin and SCDs for DVT prophylaxis. She remained hemodynamically stable and neurovascularly intact throughout her hospital stay. She began physical therapy on postoperative day 1, continued to make good progress. Ultimately she was deemed stable for discharge home on postoperative day 3. Prior to discharge, the incision was inspected and noted to be clean, dry, and intact. Dressing changes were done prior to patient going home. DISCHARGE INSTRUCTIONS: The patient be discharged home in stable condition. She is to resume her normal diet. She is weightbearing as tolerated on the left lower extremity. She will begin physical therapy with home health. She was discharged home with a medication noted and is to resume all of her normal home medication. The patient is to call the office or go to emergency room for any concerns including increased redness, swelling, drainage, fever, or any concerns regarding the operation or site of incision. Home Meds Active Scripts Hydrocodone Bit-Acetaminophen (Hydrocodone Bit-APAP) 5-325MG Tablet, 1 TAB PO Q4H Y for PAIN LEVEL 1-3 for 30 Days, #60 TAB Prov:AME MARTIN PA-C 05/04/17 Pantoprazole* (Pantoprazole*) 40 Mg Tablet.dr, 40 MG PO BID@06,18 for 40 Days, # 40 Prov:AME MARTIN PA-C 05/04/17 Tramadol HCl (Tramadol HCl) 50 Mg Tablet, 50 MG PO Q6 for 30 Days, #60 TAB Prov:AME MARTIN PA-C 05/04/17 Aspirin (Aspir-Narcisa) 325 Mg Tablet., 325 MG PO BID for 40 Days, #80 Prov:AME MARTIN PA-C 05/04/17 Discontinued Reported Medications [pain medication] No Conflict Check 05/12/13 Aspirin (Aspirin) 81 Mg Chew, 81 MG PO DAILY 05/12/13 [None] No Conflict Check 05/08/13 Follow-up Plan Follow-up in the office on 05/13/2017 Primary Care Provider Not On Staff Doctor Pending Labs Laboratory Tests Test 05/06/17 04:44 05/06/17 07:44 Hemoglobin 10.9g/dl (12.0-16.0) Hematocrit 32.4% (37.0-47.0) Sodium Level 140mmol/L (135-144) Potassium Level 4.1mmol/L (3.5-5.1) Chloride Level 98mmol/L (97-110) Carbon Dioxide Level 32mmol/L (21-31) Anion Gap 14 (8-16) Blood Urea Nitrogen 12mg/dl (7-20) Creatinine 0.61mg/dl (0.44-1.00) Glucose Level 115mg/dl (70-220) Calcium Level 9.0mg/dl (8.4-10.2) Lab Scanned Report REFERENCE [id number] AME MARTIN PA-C May 06, 2017 12:59
== END 2017-05-06 13:00 | disposition home or self-care (01) | DRG 470 ==
LOC: REC 05:41 → MS1 12:18
PROVIDERS: ADMIT Orthopaedic Surgery; ATTEND Orthopaedic Surgery
PROC: 0SRB04Z Replacement of Left Hip Joint with Ceramic on Polyethylene Synthetic Substitute, Open Approach (ICD-10-PCS; principal; 2017-05-03 07:00)
DX: M16.12 Unilateral primary osteoarthritis, left hip (principal); Z96.641 Presence of right artificial hip joint; E78.5 Hyperlipidemia, unspecified; E55.9 Vitamin D deficiency, unspecified
CPT/HCPCS: 72170; 73530; 80048; 81001; 82962; 85014; 85018; 86850; 86900; 86901; 86920; 87081; 87086; 88304; 88311; 97110; 97116; 97162; 97166; 97530; 97535; C1776; J0690; J1100; J1644; J2250; J2405; J2710; J3010; J3370; J7040; J7120

== ENCOUNTER → 2017-05-13 | Outpatient (CLI) | payer MEDICARE, BC ==
[~2017-05-13] MED LIST changes: +ASPI325T32 PO; -ASPI81TA3 PO; +HYDR-3498 PO; +PANT40TA4 PO; +TRAM50TA2 PO; -pain medication
--- NOTE | 2017-05-13 11:18 | PN ---
Date/Time of Note Date/Time of Note DATE: 05/13/17 TIME: 11:16 Assessment/Plan VTE Prophylaxis VTE Prophylaxis Intervention: ambulation, other Assessment/Plan Assessment/Plan Assessment: 10 days status post left anterior total hip arthroplasty Plan: The issa removed today, and Steri-Strips were applied. She is to continue doing physical therapy with home health and transition to a cane when appropriate. Additionally she is to continue aspirin 325 Jaquez grams twice daily for DVT prophylaxis. We will see her back in 4 weeks for repeat evaluation. She is to call the office in the meantime if she has any concerns. Subjective 24 Hr Interval Summary Free Text/Dictation The patient presents today for her first postoperative evaluation. She is 10 days status post left anterior total hip arthroplasty. She is doing well overall. She denies significant pain. She is making good progress with physical therapy at home. She is also taking aspirin twice daily for DVT prophylaxis. She denies any fevers or chills. She presents today for her first postoperative evaluation. Exam/Review of Systems Exam On exam today, she is alert and oriented 4, and in no acute distress. She is amatory with a front wheel walker. Exam of the incision demonstrates to be clean, dry, and intact. There is no erythema, warmth, pus, or drainage noted. Her leg lengths are equal bilaterally. She has no pain with passive range of motion of the left hip joint. There is no significant soft tissue swelling. Compartments are soft. Homans sign is negative. She is neurovascularly intact distally. Imaging: X-rays of the left hip were obtained today and reviewed by me. They demonstrate good anatomic alignment with no fractures or dislocations identified. AME MARTIN PA-C May 13, 2017 11:18
--- NOTE | 2017-05-13 14:35 | RADRPT ---
PROCEDURE: XR LEFT HIP. CLINICAL INDICATION: Postop. TECHNIQUE: 3 views of the left hip were performed. COMPARISON: 02/18/2017 FINDINGS: The patient is immediately postop of the left bipolar hemiarthroplasty. The prosthesis is in good p osition and alignment. 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 No acute fracture is identified. There is an appropriate appearance of the right total hip arthroplasty. The right total hip is not changed since the prior exam. IMPRESSION: 1. Interval placement of a left bipolar hemiarthroplasty in good position and alignment. 2. Appropriate appearance of both arthroplasties. 3. The patient is immediately postop on the left. RPTAT: XX .Bayron Levy MD, Date Time Electronically viewed and signed by .Bayron Levy MD, on 05/13/2017 14:34 .T/
== END | disposition home or self-care (01) ==
LOC: HKI 10:25
PROVIDERS: ATTEND Orthopaedic Surgery
DX: Z47.1 Aftercare following joint replacement surgery (principal); Z96.642 Presence of left artificial hip joint; Z79.82 Long term (current) use of aspirin
CPT/HCPCS: 73502